=== PATIENT | female | born 2000 | race African-American/Black ===

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

== ENCOUNTER 2020-06-20 01:35 | Emergency (ER) | payer OTHER ==
[2020-06-20 01:51] VITALS: BP 121/85; PULSE 82; TEMP 99; BMI 21.6
--- NOTE | 2020-06-20 02:07 | PDOC ---
History of Present Illness - General Chief Complaint: Dysphagia Stated Complaint: DIFFICULTY SWALLOWING Time Seen by Provider: 06/20/20 02:06 History Source: Patient Exam Limitations: No Limitations - History of Present Illness Initial Comments: 06/20/20 02:07 Leodan Willoughby is an otherwise healthy 19F presenting with new onset sore throat. Patient previously well all day yesterday. Went to be, woke up suddenly with sore throat that bothered her so much she could not return to sleep. Drank a glass of water and took PO Benadryl, able to swallow without issue but pain with swallowing. Tolerating secretions. Denies fever, chills, nausea, vomiting, SOB. Has pain with swallowing that hurts down throat into upper chest. Allergy to seafood and bee sting, has not eaten seafood or been stung by a bee recently. No personal or family history of thyroid disease, asthma, or GERD. NKDA. No PSH. No PMH. Denies alcohol/drugs/tobacco use. Past History - Medical History Allergies/Adverse Reactions: Allergies Allergy/AdvReac Type Severity Reaction Status Date / Time shellfish derived Allergy Verified 06/20/20 01:51 COPD: No CHF: No - Reproductive History Is Patient Now?: No - Psycho-Social/Smoking History Smoking History: Never smoked Have you smoked in the past 12 months: No Information on smoking cessation initiated: No - Substance Abuse Hx (Audit-C & DAST Scrn) How often the patient has a drink containing alcohol: Never Score: In Men: 4 or > Positive; In Women: 3 or > Positive: 0 Screen Result (Pos requires Nsg. Audit-10AR): Negative In the last yr the pt used illegal drug/Rx for NonMed reason: No Score: Yes response is considered Positive: 0 Screen Result (Positive result requires Nsg. DAST-10): Negative Review of Systems - Review of Systems Able to Perform ROS?: Yes Constitutional: No: Symptoms Reported HEENTM: Yes: Throat Pain, Difficulty Swallowing. No: Nose Pain, Nose Congestion, Mouth Pain, Dental Problems, Mouth Swelling Respiratory: No: Symptoms reported Cardiac (ROS): No: Symptoms Reported ABD/GI: Yes: Difficulty Swallowing. No: Nausea, Poor Appetite, Poor Fluid Intake, Vomiting : No: Symptoms Reported, Testicular Pain Integumentary: No: Symptoms Reported Neurological: No: Symptoms reported Endocrine: No: Symptoms Reported Hematologic/Lymphatic: No: Symptoms Reported All Other Systems: Reviewed and Negative *Physical Exam - Vital Signs Last Vital Signs Temp Pulse Resp BP Pulse Ox 99 F 82 16 121/85 100 06/20/20 01:43 06/20/20 01:43 06/20/20 01:43 06/20/20 01:43 06/20/20 01:43 - Physical Exam General Appearance: Yes: Nourished, Appropriately Dressed, Thin, Other (resting comfortably in bed). No: Apparent Distress HEENT: positive: EOMI, HUA, Normal ENT Inspection, Normal Voice, Symmetrical, TMs Normal, Hearing Grossly Normal, Other (large tongue, with tongue depressor tonsils are visible, large but normal appearing and without airway obstruction, uvula normal, no dental abnormalities, no angioedema to mouth). negative: Scleral Icterus (R), Scleral Icterus (L), Muffled/Hoarse voice, Pharyngeal Erythema, Tonsillar Exudate, Tonsillar Erythema, Nasal Congestion, Rhinorrhea Neck: positive: Trachea midline, Normal Thyroid, Supple, Other (no palpable masses or thyromegaly, normal swallow, no evidence of trauma). negative: Tender, Rigid, Decreased range of motion, Stridor, Lymphadenopathy (R), Lymphadenopathy (L), Tender lateral, Tender midline Respiratory/Chest: positive: Lungs Clear, Normal Breath Sounds. negative: Chest Tender, Respiratory Distress, Accessory Muscle Use, Labored Respiration, Rapid RR, Crackles, Rales, Rhonchi, Stridor, Wheezing Cardiovascular: positive: Regular Rhythm, Regular Rate Gastrointestinal/Abdominal: positive: Normal Bowel Sounds, Flat, Soft. negative: Tender, Organomegaly, Pulsatile Mass, Guarding, Rebound, Hernia Musculoskeletal: positive: Normal Inspection. negative: CVA Tenderness, Decreased Range of Motion, Vertebral Tenderness Extremity: positive: Normal Capillary Refill, Normal Inspection, Normal Range of Motion, Pelvis Stable. negative: Tender, Pedal Edema, Swelling, Calf Tenderness Integumentary: positive: Normal Color, Dry, Warm. negative: Erythema, Jaundice, Hives, Petechiae, Rash, Swelling Neurologic: positive: Fully Oriented, Alert, Normal Mood/Affect, Normal Response, Motor Strength 5/5 Medical Decision Making - Medical Decision Making 06/20/20 02:25 Patient otherwise healthy here for acute onset sore throat without systemic symptoms. Tolerating secretions, tolerating PO, pain only when swallowing, no facial swelling/angioedema or airway involvement, low suspicion of anaphylaxis given no exposures. Patient already taken Benadryl PO at home. No sick contacts or N/V. VSS. Testing for strep and giving 20mg famotidine, Maalox for GERD symptoms, Decadron for throat swelling. 06/20/20 04:34 Strep negative. Patient feeling better. Discharge home with PMD f/u. Discharge - Discharge Information Problems reviewed: Yes Clinical Impression/Diagnosis: Odynophagia Condition: Fair - Admission No - Follow up/Referral - Patient Discharge Instructions Patient Printed Discharge Instructions: Sore Throat Additional Instructions: Today you were evaluated for a sore throat. We tested you for strep throat and gave you medications called Pepcid and Maalox for possible acid reflux. Your strep test is negative. At home, drink tea and use lozenges for sore throat. Avoid spicy foods or alcohol at night. Follow-up with your primary doctor in the next few days for further care. If you experience inability to swallow at all, fevers, vomiting, or any other new or concerning symptoms, please return to the emergency room. - Post Discharge Activity Work/Back to School Note: Back to Work
--- NOTE | 2020-06-20 02:08 | PDOC ---
Attending Attestation - Resident Resident Name: Kyle Horta - ED Attending Attestation I have performed the following: I have examined & evaluated the patient, The case was reviewed & discussed with the resident, I agree w/resident's findings & plan - HPI HPI: 06/20/20 02:33 see resident hpi - Physicial Exam PE: 06/20/20 02:33 see resident exam - Medical Decision Making 06/20/20 02:33 19-year-old female with dysphagia, possibly related to eating spicy food prior to onset of symptoms Airway is patent There is no wheezing or stridor Plan for antacids and Decadron with DC home, return instructions related to airway compromise Discharge - Discharge Information Problems reviewed: Yes Clinical Impression/Diagnosis: Odynophagia Condition: Fair - Follow up/Referral - Patient Discharge Instructions Patient Printed Discharge Instructions: Sore Throat Additional Instructions: Today you were evaluated for a sore throat. We tested you for strep throat and gave you medications called Pepcid and Maalox for possible acid reflux. At home, drink tea and use lozenges for sore throat. Avoid spicy foods or alcohol at night. Follow-up with your primary doctor in the next few days for further care. If you experience inability to swallow at all, fevers, vomiting, or any other new or concerning symptoms, please return to the emergency room. - Post Discharge Activity Work/Back to School Note: Back to Work
[2020-06-20] MEDS ORDERED: FAMOTIDINE 20 MG TABLET PO ONE (02:25)
[2020-06-20] MEDS ORDERED: MAG HYDROX/AL HYDROX/SIMETH -MYLANTA- ORAL SUSPENSION PO ONE (02:27)
[2020-06-20] MEDS ORDERED: DEXAMETHASONE 4 MG TABLET (FP) PO ONE (02:28)
[2020-06-20] MEDS ORDERED: MAG HYDROX/AL HYDROX/SIMETH 30 ML UNIT-DOSE CUP ONE (02:30)
[2020-06-20] MEDS ORDERED: FAMOTIDINE 20 MG TABLET ONE (02:30)
[2020-06-20] MEDS ORDERED: DEXAMETHASONE SOD PHOSPHATE 10 MG/1 ML VIAL ONE (02:30)
== END 2020-06-20 04:05 | disposition home or self-care (01) ==
LOC: JER 01:35
DX: R13.10 Dysphagia, unspecified (principal)
CPT/HCPCS: 87070; 87880; 99283-25

== ENCOUNTER 2021-11-02 14:55 | Emergency (ER) | payer OTHER ==
[2021-11-02 15:25] VITALS: BP 96/56; PULSE 80; TEMP 97; BMI 22.3
[2021-11-04 11:07] LABS: SARS-CoV-2 NAA Detected (Not Detected)
== END 2021-11-02 18:02 | disposition home or self-care (01) ==
LOC: JERFT 14:55 → JER 14:55
DX: R07.0 Pain in throat (principal)
CPT/HCPCS: 87070; 87651; 87804; 87807; 99283-25; C9803; U0003; U0005